=== PATIENT | female | born 1970 | race Asian ===

== ENCOUNTER 2017-11-26 20:08 | Emergency (ER) | payer OTHER ==
[~2017-11-26] VITALS: Ht 172.7 cm; Wt 77.3 kg
[2017-11-26 22:15] VITALS: BP 138/80
== END 2017-11-26 22:49 | disposition home or self-care (01) ==
LOC: EMS 20:12
DX: J00 Acute nasopharyngitis [common cold] (principal); J02.9 Acute pharyngitis, unspecified
CPT/HCPCS: 93005; 99284

== ENCOUNTER 2019-06-15 10:03 | Emergency (ER) | payer OTHER ==
[~2019-06-15] VITALS: Ht 152.4 cm; Wt 81.8 kg
[2019-06-15] MEDS ORDERED: [UNRECOGNIZED DRUG - OTHER] PO (10:15)
[2019-06-15] MEDS ORDERED: METF-960 PO (10:15)
[2019-06-15] MEDS ORDERED: ATOR10TA84 PO (10:15)
[2019-06-15] MEDS ORDERED: DOXYCYCLINE HYCLATE 100 MG CAPSULE PO ONE (11:30)
[2019-06-15] MEDS ORDERED: BETAMETHASONE VAL 0.1% 15 GM CREAM TP ONE (11:30)
[2019-06-15] MEDS ORDERED: PERMETHRIN 5% 60 GM CREAM TP ONE (11:30)
[2019-06-15] MEDS ORDERED: HydrOXYzine HCL 25 MG TABLET PO ONE (11:30)
[2019-06-15] MEDS ORDERED: ATOR20TA86 PO (11:36)
[2019-06-15] MEDS ORDERED: LISI10TA7 PO (11:36)
[2019-06-15 12:44] VITALS: BP 155/98
== END 2019-06-15 12:21 | disposition home or self-care (01) ==
LOC: EMS 10:04
DX: L73.9 Follicular disorder, unspecified (principal); F41.9 Anxiety disorder, unspecified; I10 Essential (primary) hypertension; E78.00 Pure hypercholesterolemia, unspecified; E11.9 Type 2 diabetes mellitus without complications; Z79.84 Long term (current) use of oral hypoglycemic drugs; Z79.899 Other long term (current) drug therapy

== ENCOUNTER 2025-04-13 11:56 | Emergency (ER) | payer OTHER ==
[~2025-04-13] VITALS: Ht 152.4 cm; Wt 70.0 kg
[~2025-04-13 11:56] MED LIST: ATOR20TA PO; BACI28.410 TP; DOXY50 PO; LISI10TA24 PO; METF-1211 PO
[2025-04-13 12:01] VITALS: TEMP 98.1
[2025-04-13] MEDS ORDERED: INSU3INS3 SQ (12:03)
[2025-04-13] MEDS ORDERED: LISI20TA24 PO (12:03)
[2025-04-13] MEDS: SULFAMETHOX/TRIMETH DS 800-160 MG/TABLET PO ONE (12:43)
[2025-04-13] MEDS: CEPHALEXIN MONOHYDRATE 500 MG CAPSULE PO ONE (12:43)
[2025-04-13] MEDS: BACITRACIN 28 GM OINTMENT TP ONE (12:43)
[2025-04-13] MEDS ORDERED: CEPH-558 PO (12:52)
[2025-04-13] MEDS ORDERED: SULF-261 PO (12:52)
[2025-04-13 13:00] VITALS: BP 165/94; PULSE 98; RESP 17; O2SAT 98
== END 2025-04-13 13:17 | disposition home or self-care (01) ==
LOC: EMS 11:59
DX: L03.115 Cellulitis of right lower limb (principal); E11.9 Type 2 diabetes mellitus without complications; E78.00 Pure hypercholesterolemia, unspecified; I10 Essential (primary) hypertension; F41.9 Anxiety disorder, unspecified; Z79.4 Long term (current) use of insulin; Z79.899 Other long term (current) drug therapy
CPT/HCPCS: 82962; 99284